=== PATIENT | male | born 1990 ===

== ENCOUNTER 2018-02-16 13:03 | Emergency (ER) | payer SELFPAY ==
[2018-02-16 13:32] VITALS: BP 111/73
--- NOTE | 2018-02-16 15:09 | UC ---
Gavin Barkley Angela, scribed for Darryl Rayo MD on 02/16/18 at 1343 . General HPI - HPI Summary HPI Summary: This pt is a 28 y/o male presenting to [facility] for a prescription refill. Pt is requesting a Escitalopram refill, which he takes for depression and anxiety. Pt notes he ran out of his medication 2 days ago. Denies SOB, chest pain, abd pain. He denies any other complaints. PMHx: anxiety and depression. - History of Current Complaint Chief Complaint: UCMedRefill Stated Complaint: MED REFILL Time Seen by Provider: 02/16/18 13:06 Hx Obtained From: Patient Onset/Duration: Lasting Days, Still Present Current Severity: None Pain Intensity: 0 - denies pain Aggravating: nothing Alleviating: nothing Associated Signs & Symptoms: Negative: Abdominal Pain, Chest Pain, SOB - Allergy/Home Medications Allergies/Adverse Reactions: Allergies Allergy/AdvReac Type Severity Reaction Status Date / Time No Known Allergies Allergy Verified 02/16/18 13:32 Home Medications: Home Medications Dextroamphetamine/Amphetamine [Adderall 7.5 mg Tablet] 7.5 mg PO BID 02/16/18 [ History Confirmed 02/16/18] PMH/Surg Hx/FS Hx/Imm Hx Other Endocrine History: DENIES: diabetes Other Cardiovascular History: DENIES: HTN Psychological History: Anxiety, Depression - Surgical History Surgical History: None - Family History Known Family History: Negative: Cardiac Disease, Hypertension, Diabetes - Social History Alcohol Use: None Substance Use Type: Marijuana Substance Use Comment - Amount & Last Used: rarely Smoking Status (MU): Never Smoked Tobacco Review of Systems Constitutional: Negative Skin: Negative Eyes: Negative ENT: Negative Respiratory: Negative Cardiovascular: Negative Gastrointestinal: Negative Genitourinary: Negative Motor: Negative Neurovascular: Negative Musculoskeletal: Negative Neurological: Negative Psychological: Negative All Other Systems Reviewed And Are Negative: Yes Physical Exam - Summary Physical Exam Summary: VITAL SIGNS: Reviewed. GENERAL: Patient is a well-developed and nourished male who is lying comfortable in the stretcher. Patient is not in any acute respiratory distress. HEAD AND FACE: Normocephalic EYES: PERRLA, EOMI x 2. EARS: Hearing grossly intact. MOUTH: Oropharynx within normal limits. NECK: Supple, trachea is midline, no adenopathy, no JVD, no carotid bruit. CHEST: Symmetric, no tenderness at palpation LUNGS: Clear to auscultation bilaterally. No wheezing or crackles. CVS: Regular rate and rhythm, S1 and S2 present, no murmurs or gallops appreciated. ABDOMEN: Soft, non-tender. Bowel sounds are normal. No abdominal abnormal pulsations. EXTREMITIES: Full ROM in all major joints, no edema, no cyanosis or clubbing. NEURO: Alert and oriented x 3. No acute neurological deficits. Speech is normal and follows commands. SKIN: Dry and warm Triage Information Reviewed: Yes Vital Signs: Initial Vital Signs Temp 98.2 F 02/16/18 13:26 Pulse 85 02/16/18 13:26 Resp 16 02/16/18 13:26 BP 111/73 02/16/18 13:26 Pulse Ox 98 02/16/18 13:26 Vital Signs Reviewed: Yes Course/Dx - Course Course Of Treatment: This pt is a 28 y/o male presenting to [facility] for a prescription refill. Pt is requesting a prescription for refill of Escitalopram , which he takes for depression and anxiety. Pt notes he ran out of his medication 2 days ago. Denies SOB, chest pain, abd pain. PMHx: anxiety and depression. Pt was instructed to return to the urgent care or go to ER immediately if any of the symptoms return or worsens. Plan of care was discussed with the patient and pt understands and agrees. All questions were answered to patient satisfaction. There were no further complaints or concerns. Pt will be discharged to home with follow up from PCP as soon as possible. He was given a prescription for Escitalopram. Pt is hemodynamically stable, alert and oriented x3. - Differential Dx - Multi-Symptom Provider Diagnoses: Depression. Medication Refill Discharge - Sign-Out/Discharge Documenting (check all that apply): Discharge - Discharge Plan Condition: Stable Disposition: HOME Prescriptions: Escitalopram Oxalate [Lexapro 10 mg] 15 mg PO DAILY #40 tablet Patient Education Materials: Depression (DC) Referrals: [facility] [Outside] No Primary Care Phys,NOPCP [Primary Care Provider] - Additional Instructions: Take medications as instructed Increase your fluid intake Return to the if symptoms worsen The documentation as recorded by the Gavin kelly Angela accurately reflects the service I personally performed and the decisions made by me, Darryl Rayo MD.
== END 2018-02-16 14:00 | disposition home or self-care (01) ==
LOC: UCEAST 13:03
DX: F32.9 Major depressive disorder, single episode, unspecified (principal)
CPT/HCPCS: 99202; G0463

== ENCOUNTER 2018-03-30 14:34 | Emergency (ER) | payer OTHER ==
[2018-03-30 16:39] VITALS: BP 111/72
--- NOTE | 2018-03-30 18:07 | ED ---
Chon Barkley Jennifer, scribed for Jordi Wise MD on 03/30/18 at 1544 . Head Injury - HPI Summary HPI Summary: The patient is a 28 year old male who presents with head injury after an unwitnessed syncopal episode yesterday. The patient says he hit his head on his desk while he was passing out from a standing position. He complains of a headache that comes and goes and frequent lightheadedness when he changes posture. The patient adds that the syncope might be due to the lack of food and water last night but denies eating disorder. He additionally complains of slight confusion after fainting and loss of visual focus while reading this morning. - History Of Current Complaint Chief Complaint: EDHeadInjury Stated Complaint: HEAD INJURY 03/29 Time Seen by Provider: 03/30/18 15:30 Hx Obtained From: Patient Mechanism Of Injury: Fall From A Standing Position Onset/Duration: Started Hours Ago - last night, Still Present Severity Currently: Mild Severity Initially: Mild Pain Intensity: 3 Pain Scale Used: 0-10 Numeric Location of Head Injury: Parietal - right Location: Discrete At: - right parietal Character: Other: - Lump Aggravating Factor(s): Other: - lightheadedness upon postural change Alleviating Factor(s): Rest Associated Signs And Symptoms: Other: - lump on head, syncope, headache, lightheadedness, losing visual focus, slight confusion - Allergies/Home Medications Allergies/Adverse Reactions: Allergies Allergy/AdvReac Type Severity Reaction Status Date / Time No Known Allergies Allergy Verified 03/30/18 14:50 PMH/Surg Hx/FS Hx/Imm Hx Endocrine/Hematology History: Denies: Hx Diabetes Cardiovascular History: Reports: Other Cardiovascular Problems/Disorders - Orthostatic hypotension Psychiatric History: Reports: Hx Attention Deficit Hyperactivity Disorder Infectious Disease History: No Infectious Disease History: Denies: Traveled Outside the [place] in Last 30 Days - Family History Known Family History: Negative: Cardiac Disease, Hypertension, Diabetes - Social History Occupation: Student Alcohol Use: None Substance Use Type: Reports: Marijuana Substance Use Comment - Amount & Last Used: rarely Hx Tobacco Use: No Smoking Status (MU): Never Smoked Tobacco Review of Systems Eyes: Other - loss of visual focus Neurological: Other - lump on head, lightheadedness, slight confusion Positive: Headache, Syncope All Other Systems Reviewed And Are Negative: Yes Physical Exam - Summary Physical Exam Summary: Appearance: Well appearing, no pain distress Skin: warm, dry, reflects adequate perfusion Head/face: small hematoma on right parietal area, about 2cm in size. Eyes: EOMI, THOR ENT: normal, no neck stiffness or pain in the midline Neck: supple, non-tender Respiratory: CTA, breath sounds present Cardiovascular: RRR, pulses symmetrical Abdomen: non-tender, soft Bowel Sounds: present Musculoskeletal: normal, strength/ROM intact Neuro: normal, sensory motor intact, A&Ox3 Triage Information Reviewed: Yes Vital Signs On Initial Exam: Initial Vitals Temp Pulse Resp BP Pulse Ox 98.4 F 93 17 114/74 97 03/30/18 14:45 03/30/18 14:45 03/30/18 14:45 03/30/18 14:45 03/30/18 14:45 Vital Signs Reviewed: Yes Diagnostics - Vital Signs Vital Signs Temp Pulse Resp BP Pulse Ox 03/30/18 14:45 98.4 F 93 17 114/74 97 - Laboratory Lab Statement: Any lab studies that have been ordered have been reviewed, and results considered in the medical decision making process. - Additional Comments Diagnostic Additional Comments: EKG at 15:46. NSR 74 BPM. Right axis deviation. J point elevation diffusely. No reciprocal ST depression. No MT depression. Re-Evaluation - Re-Evaluation First Eval Change: Improved Head Injury Course/Dx Course Of Treatment: pt with a hx of orthostasis, states he hadnt been eating/ drinking well despite heat. On ADHD med. HR change on orthostatics here is min. Shea PO fluids. EKG with nl intervals. No significant head injury. To f/u closely with [facility]. - Diagnoses Differential Diagnosis/HQI/PQRI: Concussion Without LOC, Other - QTc prolongation, orthostasis, vagal syncope, neurocardiogenic syncope. Provider Diagnoses: Orthostatic syncope, Closed head injury with concussion Discharge - Sign-Out/Discharge Documenting (check all that apply): Discharge/Admit/Transfer - Discharge Plan Condition: Good Disposition: HOME Patient Education Materials: Syncope (ED), Post Concussion Syndrome (ED) Referrals: [facility] - Ronnie HANSEN [Primary Care Provider] - Additional Instructions: Stay well hydrated. Eat regularly. Return with repeat passing out, seizure, palpitations, worse or other concerns. No contact sports for 10 days. Follow up with [facility] next week. - Billing Disposition and Condition Condition: GOOD Disposition: HOME The documentation as recorded by the Chon kelly Jennifer accurately reflects the service I personally performed and the decisions made by me, Jordi Wise MD.
== END 2018-03-30 16:38 | disposition home or self-care (01) ==
LOC: ED 14:34
DX: S06.0X0A Concussion without loss of consciousness, initial encounter (principal); R51 Headache; R55 Syncope and collapse; R42 Dizziness and giddiness; I95.1 Orthostatic hypotension; W22.8XXA Striking against or struck by other objects, initial encounter; Y92.9 Unspecified place or not applicable
CPT/HCPCS: 93005; 99282